=== PATIENT | male | born 1955 | race Caucasian/White ===

== ENCOUNTER 2024-06-13 00:36 | Inpatient (IN) | payer BC ==
[~2024-06-13] VITALS: Ht 188 cm; Wt 122.5 kg
[2024-06-13 05:22] LABS: BASOPHILS # (AUTO) 0.1 K/UL (0.0-0.2); BASOPHILS % (AUTO) 1.4 % (0.0-2.0); DIFFERENTIAL COMMENT 1; EOSINOPHILS # (AUTO) 0.1 K/uL (0.0-0.7); EOSINOPHILS % (AUTO) 2.4 % (0.0-7.0); HEMATOCRIT 39.4 % (36.7-47.1); HEMOGLOBIN 13.2 g/dL (12.5-16.3); LYMPHOCYTES # (AUTO) 1.3 K/uL (0.8-4.8); LYMPHOCYTES % (AUTO) 22.5 % (20.5-51.5); MEAN CORPUSCULAR HEMOGLOBIN 33.1 uug (23.8-33.4); MEAN CORPUSCULAR HGB CONC 34 g/dL (32.5-36.3); MEAN CORPUSCULAR VOLUME 98.6 fL (73.0-96.2); MONOCYTES # (AUTO) 0.4 K/uL (0.1-1.30); MONOCYTES % (AUTO) 7.2 % (0.0-11.0); NEUTROPHILS # (AUTO) 3.9 K/uL (1.8-8.9); NEUTROPHILS % (AUTO) 66.5 % (38.5-71.5); PLATELET COUNT (AUTO) 163 K/uL (152-348); RED BLOOD CELL COUNT(AUTO) 3.99 MIL/uL (4.06-5.63); RED CELL DISTRIBUTION WIDTH 13.3 % (12.1-16.2); WHITE BLOOD COUNT (AUTO) 5.8 K/uL (3.6-10.2)
[2024-06-13 05:29] LABS: CALCIUM 8.8 mg/dL (8.5-10.1); CARBON DIOXIDE 28 mmol/L (21-32); CHLORIDE 104 mmol/L (98-107); CREATININE 1.1 mg/dL (0.6-1.3); GLUCOSE 93 mg/dL (74-106); POTASSIUM 4.1 mmol/L (3.5-5.1); SODIUM SERUM 141 mmol/L (136-145); UREA NITROGEN, BLOOD 14 mg/dL (7-18)
[2024-06-13 05:43] LABS: ALANINE AMINOTRANSFERASE 32 U/L (16-63); ALBUMIN 3.4 g/dL (3.4-5.0); ALKALINE PHOSPHATASE 50 U/L (50-136); ASPARTATE AMINOTRANSFERASE 24 U/L (15-37); BILIRUBIN,DIRECT 0.2 mg/dL (0.0-0.2); NT-PRO BNP 4213 pg/mL (0-125); TOTAL PROTEIN, SERUM 6.6 g/dL (6.4-8.2)
[2024-06-13] MEDS ORDERED: MAGNESIUM SULFATE/D5W 100 ML ONE ×2 (05:49→07:54)
[2024-06-13] MEDS: MAGNESIUM SULFATE/D5W 100 ML IV SCH (05:51)
[2024-06-13] MEDS: FUROSEMIDE 40 MG/4 ML VIAL IV ONE (08:15)
[2024-06-13] MEDS ORDERED: FUROSEMIDE 40 MG/4 ML VIAL ONE (11:33)
[2024-06-13] MEDS ORDERED: HYDR-3980 PO (15:58)
[2024-06-13] MEDS ORDERED: BENA40TA8 PO (15:58)
[2024-06-13] MEDS ORDERED: HYDR25TA4 PO (15:58)
[2024-06-13] MEDS ORDERED: hydrALAZINE HCL 25 MG TABLET PO PRN (17:00)
[2024-06-13] MEDS: AMIODARONE HCL IV 450 MG in IV DEXTROSE 5% 250 ML IV PRN (18:08)
[2024-06-13] MEDS ORDERED: HYDROCODONE/APAP 10-325 MG TABLET ONE (18:33)
[2024-06-13] MEDS: HYDROCODONE/APAP 10-325 MG TABLET PO PRN (18:36)
[2024-06-13] MEDS ORDERED: METOPROLOL TARTRATE 50 MG TABLET ONE (21:47)
[2024-06-13] MEDS ORDERED: ENOXAPARIN SODIUM 40 MG/0.4 ML DISP.SYRIN SQ ONE (21:54)
[2024-06-13] MEDS ORDERED: ENOXAPARIN SODIUM 80 MG/0.8 ML DISP.SYRIN SQ ONE (21:54)
[2024-06-13] MEDS: ENOXAPARIN SODIUM 120 MG/0.8 ML SYRINGE SQ SCH (21:56)
[2024-06-13] MEDS: METOPROLOL TARTRATE 50 MG TABLET PO SCH (21:56)
[2024-06-14] MEDS ORDERED: HYDROCODONE/APAP 10-325 MG TABLET ONE ×2 (01:25→08:37)
[2024-06-14] MEDS ORDERED: PANTOPRAZOLE SODIUM 40 MG TABLET.DR PO ONE (06:27)
[2024-06-14] MEDS: PANTOPRAZOLE SODIUM 40 MG TABLET.DR PO SCH (06:30)
[2024-06-14 06:37] LABS: BASOPHILS # (AUTO) 0.1 K/UL (0.0-0.2); BASOPHILS % (AUTO) 1.2 % (0.0-2.0); EOSINOPHILS # (AUTO) 0.1 K/uL (0.0-0.7); EOSINOPHILS % (AUTO) 2.6 % (0.0-7.0); HEMATOCRIT 40.3 % (36.7-47.1); HEMOGLOBIN 13.6 g/dL (12.5-16.3); LYMPHOCYTES # (AUTO) 1.1 K/uL (0.8-4.8); LYMPHOCYTES % (AUTO) 23.7 % (20.5-51.5); MEAN CORPUSCULAR HEMOGLOBIN 33.1 uug (23.8-33.4); MEAN CORPUSCULAR HGB CONC 34 g/dL (32.5-36.3); MONOCYTES # (AUTO) 0.2 K/uL (0.1-1.30); MONOCYTES % (AUTO) 5.3 % (0.0-11.0); NEUTROPHILS # (AUTO) 3.1 K/uL (1.8-8.9); NEUTROPHILS % (AUTO) 67.2 % (38.5-71.5); PLATELET COUNT (AUTO) 166 K/uL (152-348); RED BLOOD CELL COUNT(AUTO) 4.11 MIL/uL (4.06-5.63); RED CELL DISTRIBUTION WIDTH 13.3 % (12.1-16.2); WHITE BLOOD COUNT (AUTO) 4.6 K/uL (3.6-10.2)
[2024-06-14 07:00] LABS: THYROID STIMULATING HORMONE 0.802 mIU/mL (0.358-3.740)
[2024-06-14 07:20] LABS: DIFFERENTIAL COMMENT 1
[2024-06-14 07:25] LABS: ALBUMIN 3.3 g/dL (3.4-5.0); BILIRUBIN,TOTAL 1.3 mg/dL (0.2-1.0); CREATININE 1.1 mg/dL (0.6-1.3); MAGNESIUM 2.2 mg/dL (1.8-2.4); PHOSPHOROUS 3.2 mg/dL (2.5-4.9); TOTAL PROTEIN, SERUM 6.4 g/dL (6.4-8.2)
[2024-06-14] MEDS ORDERED: FUROSEMIDE 40 MG/4 ML VIAL ONE (08:13)
[2024-06-14] MEDS ORDERED: METOPROLOL TARTRATE 50 MG TABLET ONE ×2 (08:13→09:25)
[2024-06-14] MEDS: FUROSEMIDE 40 MG/4 ML VIAL IV SCH ×2 (08:14→09:00)
[2024-06-14] MEDS ORDERED: ACETAMINOPHEN 325 MG TABLET ONE (08:37)
[2024-06-14] MEDS: ACETAMINOPHEN 325 MG TABLET PO PRN (08:40)
[2024-06-14] MEDS: METOPROLOL TARTRATE 50 MG TABLET PO ONE (09:31)
[2024-06-14 10:00] VITALS: BP 125/97; TEMP 98; O2SAT 96
[2024-06-14 11:00] VITALS: BP 126/89; O2SAT 96
[2024-06-14 12:00] VITALS: BP 130/96; TEMP 97.7; O2SAT 97
[2024-06-14 13:00] VITALS: BP 149/100; O2SAT 96
[2024-06-14 14:00] VITALS: BP 112/95; O2SAT 95
[2024-06-14] MEDS ORDERED: IPRATROPIUM BROMIDE 0.5 MG/2.5 ML NEBU NEB PRN (14:45)
[2024-06-14] MEDS ORDERED: LEVALBUTEROL HCL NEB 0.63 MG/3 ML NEBU NEB PRN (14:45)
[2024-06-14 20:00] VITALS: BP 107/78; TEMP 97.5; O2SAT 93
[2024-06-14] MEDS: METOPROLOL TARTRATE 50 MG TABLET PO SCH (21:00)
[2024-06-15] VITALS: BP 130/89; TEMP 98; O2SAT 92
[2024-06-15 04:46] VITALS: BP 145/94; TEMP 98.5; O2SAT 96
[2024-06-15 08:11] VITALS: BP 132/91; TEMP 98; O2SAT 97
[2024-06-15 08:31] LABS: BASOPHILS # (AUTO) 0.1 K/UL (0.0-0.2); BASOPHILS % (AUTO) 1.4 % (0.0-2.0); EOSINOPHILS # (AUTO) 0.1 K/uL (0.0-0.7); EOSINOPHILS % (AUTO) 3.1 % (0.0-7.0); HEMATOCRIT 41.1 % (36.7-47.1); HEMOGLOBIN 13.5 g/dL (12.5-16.3); LYMPHOCYTES # (AUTO) 0.9 K/uL (0.8-4.8); LYMPHOCYTES % (AUTO) 19.5 % (20.5-51.5); MEAN CORPUSCULAR HEMOGLOBIN 32.4 uug (23.8-33.4); MEAN CORPUSCULAR HGB CONC 33 g/dL (32.5-36.3); MEAN CORPUSCULAR VOLUME 98.4 fL (73.0-96.2); MONOCYTES # (AUTO) 0.3 K/uL (0.1-1.30); MONOCYTES % (AUTO) 6.4 % (0.0-11.0); NEUTROPHILS # (AUTO) 3.4 K/uL (1.8-8.9); NEUTROPHILS % (AUTO) 69.6 % (38.5-71.5); PLATELET COUNT (AUTO) 196 K/uL (152-348); RED BLOOD CELL COUNT(AUTO) 4.18 MIL/uL (4.06-5.63); WHITE BLOOD COUNT (AUTO) 4.8 K/uL (3.6-10.2)
[2024-06-15 08:34] LABS: DIFFERENTIAL COMMENT 1
[2024-06-15 08:49] LABS: ALBUMIN 3.3 g/dL (3.4-5.0); CALCIUM 9.3 mg/dL (8.5-10.1); CREATININE 1.2 mg/dL (0.6-1.3); MAGNESIUM 2.1 mg/dL (1.8-2.4); POTASSIUM 4.3 mmol/L (3.5-5.1); TOTAL PROTEIN, SERUM 6.5 g/dL (6.4-8.2)
[2024-06-15] MEDS: FUROSEMIDE 20 MG/2 ML VIAL IV ONE (09:24)
[2024-06-15] MEDS: APIXABAN 5 MG TABLET PO SCH (09:25)
[2024-06-15] MEDS: VALSARTAN 40 MG TABLET PO SCH (09:30)
[2024-06-15] MEDS: METOPROLOL SUCCINATE XL 50 MG TAB.SR.24H PO SCH (09:31)
[2024-06-15 11:37] VITALS: BP 99/60; TEMP 97.9; O2SAT 95
[2024-06-15] MEDS ORDERED: APIX5TAB PO (12:25)
[2024-06-15] MEDS ORDERED: VALS40TA12 PO (12:25)
[2024-06-15] MEDS ORDERED: METO-357 PO (12:25)
[2024-06-15] MEDS ORDERED: ATOR20TA PO (12:25)
[2024-06-15] MEDS ORDERED: ATORVASTATIN 20 MG TABLET PO SCH (21:00)
[2024-06-15] MEDS ORDERED: ATORVASTATIN 40 MG TABLET PO SCH ×2 (21:00)
== END 2024-06-15 13:40 | disposition home or self-care (01) | DRG 308 ==
LOC: ER 00:45 → TRANSITION 13:00 → UNDOADMIN 13:00 → TRANSITION 13:01 → TELE3 06-14 14:55
PROVIDERS: ADMIT Internal Medicine; ATTEND Internal Medicine
DX: I48.91 Unspecified atrial fibrillation (principal); I50.23 Acute on chronic systolic (congestive) heart failure; I11.0 Hypertensive heart disease with heart failure; Z66 Do not resuscitate; Z68.34 Body mass index [BMI] 34.0-34.9, adult; E66.9 Obesity, unspecified; I42.9 Cardiomyopathy, unspecified; N40.0 Benign prostatic hyperplasia without lower urinary tract symptoms; D75.89 Other specified diseases of blood and blood-forming organs; Z87.19 Personal history of other diseases of the digestive system; Z87.891 Personal history of nicotine dependence; Z85.828 Personal history of other malignant neoplasm of skin; Z82.49 Family history of ischemic heart disease and other diseases of the circulatory system; Z90.49 Acquired absence of other specified parts of digestive tract; Z79.899 Other long term (current) drug therapy
CPT/HCPCS: 36415; 71045; 83735; 84100; 84443; 84484; 85025; 85730; 93005; 93307; A4606; A4663; G0378; J1650; J1940; J3475; J7050